=== PATIENT | male | born 1990 ===

== ENCOUNTER 2018-01-18 09:03 | Day surgery (SDC) | payer OTHER ==
[~2018-01-18] VITALS: Ht 152.4 cm; Wt 72.6 kg
== END 2018-01-18 22:50 | disposition home or self-care (01) ==
LOC: ORSCMMR 09:03 → ORD 10:30 → ORSCMMR 10:30
PROVIDERS: Surgery
PROC: 0YU60JZ Supplement Left Inguinal Region with Synthetic Substitute, Open Approach (ICD-10-PCS; principal; 2018-01-18 10:30)
DX: K40.30 Unilateral inguinal hernia, with obstruction, without gangrene, not specified as recurrent (principal)
CPT/HCPCS: C1781; J0690; J1100; J2250; J2405; J3010; J7120